=== PATIENT | female | born 1960 | race Caucasian/White ===

== ENCOUNTER 2018-09-22 15:04 | Observation (INO) | payer MEDICARE ==
[~2018-09-22] VITALS: Ht 157.5 cm; Wt 75.9 kg
[~2018-09-22 15:04] MED LIST: METF500T PO
--- NOTE | 2018-09-22 16:43 | ERD ---
ER Documentation Chief Complaint Chief Complaint PT reports epigastric pain radiates to her back since midnight HPI 57-year-old female presents the emergency department complaining of epigastric and chest pain. Patient states that beginning last night she began having a nonspecific chest discomfort which radiated to her epigastric area as well as to her left arm. Made her feel somewhat short of breath. It continued throughout the course of the day and then she came to the emergency department for evaluation. Patient reports the pain is non-provoked and associated with no palpitations, fevers, chills, hemoptysis or sputum production. Patient currently reports the pain is mild to moderate. She has never had similar type discomfort. ROS All systems reviewed and are negative except as per history of present illness. Allergies Allergies: Coded Allergies: No Known Allergy (Unverified , 09/22/18) PMhx/Soc Medical and Surgical Hx: pt denies Surgical Hx History of Surgery: No Hx Neurological Disorder: No Hx Respiratory Disorders: No Hx Cardiac Disorders: No Hx Miscellaneous Medical Probl: No Hx Alcohol Use: No Hx Substance Use: No Hx Tobacco Use: No Smoking Status: Never smoker FmHx Noncontributory for chief complaint Physical Exam Vitals Vital Signs Date Temp Pulse Resp B/P (MAP) Pulse Ox O2 O2 Flow FiO2 Time Delivery Rate 09/22/18 Nasal 2 15:43 Cannula 09/22/18 98.9 84 16 185/101 99 15:05 (129) Physical Exam GENERAL: The patient is well developed and appropriate for usual state of health in no apparent distress HEENT: Pupils equal, round, and reactive to light. EOMI. There is no scleral icterus. NECK: C-spine is soft and supple, there is no meningismus. There is no cervical lymphadenopathy. LUNGS: Clear to auscultation bilaterally. There are no rales, wheezes or rhonchi. HEART: Regular rate and rhythm, no murmurs, clicks, rubs or gallops. ABDOMEN: Soft, non-tender, non-distended. There are bowel sounds in all four quadrants. No rebound or guarding. EXTREMITIES: There is no peripheral cyanosis or edema. No focal swelling or erythema. NEURO: The patient moves all four extremities with 5/5 strength. Cranial nerves II - XII are intact. Normal gait. Alert and oriented SKIN: There is no apparent rash or petechiae. HEME/LYMPHATIC: There is no evidence of excessive bruising or lymphedema. PSYCHIATRIC: The patient does not appear anxious or depressed. Result Diagram: 09/22/18 1544 09/22/18 1544 Results 24 hrs Laboratory Tests Test 09/22/18 15:44 White Blood Count 8.3 10^3/ul Red Blood Count 4.90 10^6/ul Hemoglobin 14.5 g/dl Hematocrit 43.4 % Mean Corpuscular Volume 88.6 fl Mean Corpuscular Hemoglobin 29.6 pg Mean Corpuscular Hemoglobin Concent 33.4 g/dl Red Cell Distribution Width 12.5 % Platelet Count 141 10^3/UL Mean Platelet Volume 12.3 fl Immature Granulocytes % 0.400 % Neutrophils % 58.9 % Lymphocytes % 31.4 % Monocytes % 7.5 % Eosinophils % 1.3 % Basophils % 0.5 % Nucleated Red Blood Cells % 0.0 /100WBC Immature Granulocytes # 0.030 10^3/ul Neutrophils # 4.9 10^3/ul Lymphocytes # 2.6 10^3/ul Monocytes # 0.6 10^3/ul Eosinophils # 0.1 10^3/ul Basophils # 0.0 10^3/ul Nucleated Red Blood Cells # 0.0 10^3/ul Sodium Level 137 mmol/L Potassium Level 4.2 mmol/L Chloride Level 103 mmol/L Carbon Dioxide Level 25 mmol/L Anion Gap 9 Blood Urea Nitrogen 14 mg/dl Creatinine 0.72 mg/dl Est Glomerular Filtrat Rate mL/min > 60 mL/min Glucose Level 373 mg/dl Calcium Level 9.7 mg/dl Total Bilirubin 0.8 mg/dl Direct Bilirubin 0.00 mg/dl Indirect Bilirubin 0.8 mg/dl Aspartate Amino Transf (AST/SGOT) 37 IU/L Alanine Aminotransferase (ALT/SGPT) 50 IU/L Alkaline Phosphatase 113 IU/L Troponin I 0.024 ng/ml Total Protein 8.8 g/dl Albumin 4.1 g/dl Globulin 4.70 g/dl Albumin/Globulin Ratio 0.87 Lipase 59 U/L Procedures/MDM Patient was taken to a room, seen and evaluated. Comfort measures were initiated. Diagnostic tests were ordered and reviewed. 3 LEAD RHYTHM STRIP: Normal sinus rhythm without ectopy EK lead EKG reviewed by myself: Normal Sinus Rhythm Normal [place] and intervals No ST elevation, depression, or T wave inversion, nonspecific ST and T wave changes without ST elevation Impression: Normal EKG RADIOLOGY: Reviewed with the radiologist CONSULTATION: Hospitalist was notified for admission REEVALUATION: 1640: Diagnostic tests were appreciated. Patient was reevaluated and remained comfortable in appearance. She had no ongoing chest discomfort. Decision was made to admit to the hospital for further observation and consultation with her and her family MEDICAL DECISION MAKING: Patient presents with chest pain of uncertain etiology. Differential diagnosis considered includes acute myocardial infarction, pulmonary embolism, as well as vascular and pulmonary concerns. I have reviewed the patients clinical risk factors, EKG, lab studies and imaging. At this time, this diabetic, hypertensive female will be admitted to the hospital for further observation of possible cardiac disease as I am concerned regarding her significant risk factors. Departure Diagnosis: Primary Impression: Chest pain Additional Impression: Diabetes Condition: KAYLI Paz Sep 22, 2018 16:43
[2018-09-22] MEDS ORDERED: ACETAMINOPHEN 325 MG TAB PO PRN ×2 (17:00)
[2018-09-22] MEDS ORDERED: ONDANSETRON 4 MG INJ IV PRN (17:00)
[2018-09-22] MEDS ORDERED: IBUPROFEN 600 MG TAB PO PRN (17:00)
[2018-09-22] MEDS ORDERED: NACL 0.9% 3 ML SYG IV SCH (17:00)
--- NOTE | 2018-09-22 17:20 | HP ---
Date/Time of Note Date/Time of Note DATE: 09/22/18 TIME: 17:06 Assessment/Plan VTE Prophylaxis SCD applied (from Nsg): Yes Pharmacological prophylaxis: NA/contraindicated Pharm contraindication: low risk/ambulating Lines/Catheters IV Catheter Type (from Nrsg): Sal[place] Assessment/Plan Assessment/Plan 57 yo woman with asthma and diabetes presents with chest pain #Chest pain - Low concern for ACS. Trop negative, EKG looks good. - Check D dimer for PE. If positive will need CTPA. - Admit to telemetry. - Trend troponins. - Tylenol, ibuprofen prn pain. #Asthma - Albuterol prn #Diabetes - Sliding scale while inpatient. DVT: SCDs GI: None Result Diagram: 09/22/18 1544 09/22/18 1544 HPI/ROS Admit Date/Time Admit Date/Time 22 September 2018 Hx of Present Illness Ms. Huynh is a 57 yo woman with history of diabetes and mild intermittent asthma who presents with acute onset chest pain. She awoke at 4 am this morning short of breath and with mid substernal chest pain, slightly burning, not pressure-like. Symptoms lasted a few hours then self-resolved. She then developed similar aching, burning L chest pain and back pain around noon today. She presented to the emergency room. She still has this pain, and has R arm pain also. Otherwise she reports good exercise tolerance with no angina normally. She has no orthopnea or PND. In the emergency room she was afebrile, hypertensive to 185/101, P 80. Labs notable for BS 373. EKG was normal sinus with no ST-T changes concerning for ischemia. Troponin is negative. CXR is also unremarkable. ROS She denies recent fever, chills, anorexia, weight loss, night sweats, headache, vision changes, dizziness, sore throat, dysphagia, cough, chest pressure, naus ea, vomiting, abdominal pain, diarrhea, constipation, dysuria. PMH/Family/Social Past Medical History Mild intermittent asthma Diabetes type II, on metformin Medications Current Medications Ondansetron HCl (Zofran Inj) 4 mg ER BRIDGE PRN IV NAUSEA/VOMITING; Start 09/22/18 at 17:00; Stop 09/23/18 at 16:59 Acetaminophen (Tylenol Tab) 650 mg ER BRIDGE PRN PO .MILD PAIN 1-3 OR TEMP; Start 09/22/18 at 17:00; Stop 09/23/18 at 16:59 Coded Allergies: No Known Allergy (Unverified , 09/22/18) Past Surgical History Denies Social History Lives with daughter. Alcohol Use: none Smoking Status: Never smoker Drug Use: none Exam/Review of Systems Vital Signs Vitals Vital Signs Date Temp Pulse Resp B/P (MAP) Pulse Ox O2 O2 Flow FiO2 Time Delivery Rate 09/22/18 Nasal 2 15:43 Cannula 09/22/18 98.9 84 16 185/101 99 15:05 (129) Exam Exam Gen: Well appearing woman lying in gurney in no acute distress. Eyes: PERRL, no icterus HEENT: Moist mucous membranes, clear oropharynx Neck: Supple, no lymphadenopathy, no jugular venous distension Card: Regular rate and rhythm, no murmurs. Pulm: Clear to auscultation bilaterally. Abd: Soft, nontender to palpation, nondistended. Normoactive bowel sounds. Ext: No cyanosis/clubbing/edema. Skin: No jaundice. Warm, dry, well perfused. SAM WALDEN MD Sep 22, 2018 17:16
[2018-09-22] MEDS: ONDANSETRON 4 MG INJ IV PRN ×2 (17:28→23:50)
[2018-09-22] MEDS ORDERED: GLUCOSE GEL 15 GRAM TUBE PO PRN ×2 (17:30)
[2018-09-22] MEDS ORDERED: GLUCOSE GEL 15 GRAM TUBE BUCCAL PRN (17:30)
[2018-09-22] MEDS ORDERED: GLUCAGON 1 MG INJ IM PRN (17:30)
[2018-09-22] MEDS ORDERED: DEXTROSE 50% 50 ML SYRINGE IV PRN ×2 (17:30)
[2018-09-22] MEDS ORDERED: ASPIRIN 325 MG TAB PO ONE (18:00)
[2018-09-22] MEDS: INSULIN ASPART [NOVOLOG] 3 ML PEN SC SCH ×2 (18:36→21:01)
[2018-09-22] MEDS ORDERED: KETOROLAC 15 MG INJ IV STA (19:22)
[2018-09-22 21:50] VITALS: Ht 157.5 cm; Wt 75.9 kg
[2018-09-22] MEDS ORDERED: AL HYDROX/MG HYDROX/SIMETH 30 ML CUP PO ONE (23:00)
[2018-09-22] MEDS ORDERED: NITROGLYCERIN (SL) 0.4 MG TAB SL ONE (23:30)
[2018-09-22 23:53] VITALS: BP 158/87; PULSE 65; RESP 18
[2018-09-23] MEDS ORDERED: ACCU-CHEK XX SCH (02:00)
[2018-09-23] MEDS ORDERED: HEPARIN 1000 UNITS/ML 10 ML INJ IV PRN ×2 (03:00→09:00)
[2018-09-23] MEDS ORDERED: HEPARIN 25000 UNITS/250 ML 250 ML IV SCH (03:00)
[2018-09-23] MEDS ORDERED: HEPARIN 1000 UNITS/ML 10 ML INJ IV ONE (03:00)
--- NOTE | 2018-09-23 03:02 | QN ---
Documentation Comment nstemi: positive troponin and ckmb. complaining of epigastric pain which was relieved with nitro. Starting heparin drip. cardiac enzymes trending. RACHELE BOLAÑOS Sep 23, 2018 03:02
[2018-09-23] MEDS ORDERED: ATORVASTATIN 80 MG TAB PO ONE (03:30)
[2018-09-23] MEDS ORDERED: NITROGLYCERIN (SL) 0.4 MG TAB SL PRN (03:30)
[2018-09-23] MEDS ORDERED: NITROGLYCERIN (SL) 0.4 MG TAB SL ONE (03:30)
[2018-09-23] MEDS ORDERED: LISINOPRIL 10 MG TAB PO ONE (03:30)
[2018-09-23] MEDS ORDERED: morphine 2 MG INJ IV PRN ×2 (04:00→05:30)
[2018-09-23 04:16] VITALS: BP 137/81; PULSE 74; RESP 18
[2018-09-23] MEDS ORDERED: LORAZEPAM 0.5 MG TAB PO PRN (07:00)
[2018-09-23 07:38] VITALS: BP 130/88; PULSE 72; RESP 18
[2018-09-23] MEDS ORDERED: INSULIN ASPART [NOVOLOG] 3 ML PEN SC SCH (09:00)
[2018-09-23] MEDS: INSULIN ASPART [NOVOLOG] 3 ML PEN SC SCH ×2 (09:45→13:50)
[2018-09-23] MEDS ORDERED: ASPIRIN 81 MG TAB PO SCH (10:30)
[2018-09-23] MEDS ORDERED: METOPROLOL 50 MG TAB PO SCH (10:30)
[2018-09-23 10:46] VITALS: BP 116/67; RESP 18
--- NOTE | 2018-09-23 10:52 | RADRPT ---
Echocardiogram Report Patient Name: NEIL GERMANPatient ID: [id number] : 1960 (57y 11m)Study Date: 09/23/2018 8:18:50 AM Gender: FAccession #: [id number] Tech: LE Location: [facility] Ref.Physician: RACHELE BOLAÑOS Height(Cm): BSA: Weight(Kg): Quality: GoodOrder Physician: RACHELE BOLAÑOS Account #: Procedures: Echocardiographic Report: Transthoracic echocardiogram with complete 2D, M-Mode, and doppler examination. Indications: NSTEMI. Measurements: 2D/M Mode Doppler Measurement Value Normal Range Measurement Value Normal Range LVIDd 2D 4.8 [ 3.8 - 5.2 ] cm AV Mean Mychal 0.9 [ 70.0 - 90.0 ] cm/sec LVIDs 2D 4.0 [ 2.2 - 3.5 ] cm AV Mean PG 3.0 [ 2.0 - 4.0 ] mmHg LVPWd 2D 1.0 [ 0.6 - 0.9 ] cm AV Peak Mychal 1.2 [ 100.0 - 170.0 ] cm/sec IVSd 2D 1.0 [ 0.6 - 0.9 ] cm AV Peak PG 6.0 [ 2.0 - 9.0 ] mmHg EF 2D 35.2 [ 54.0 - 74.0 ] percent AV VTI 27.1 cm LVOT Diam 2.0 [ 2.1 - 2.5 ] cm LVOT Peak Mychal 0.7 [ 70.0 - 110.0 ] cm/sec LVOT Peak PG 2.0 [ 2.0 - 6.0 ] mmHg MV E Peak Mychal 0.8 [ 60.0 - 130.0 ] cm/sec MV A Peak Mychal 1.2 [ 100.0 - 120.0 ] cm/sec MV E/A 0.7 [ 0.8 - 1.5 ] ratio MV Decel Time 180 [ 104 - 258 ] msec Lat E` Mychal 0.0 [ 10.0 - 15.0 ] cm/sec Lateral E/E` 19.3 [ 1.0 - 2.0 ] ratio Med E` Mychal 0.0 cm/sec MV E/A 0.7 [ 0.8 - 1.5 ] ratio TR Peak Mychal 2.8 [ 100.0 - 280.0 ] cm/sec TR Peak PG 32.0 mmHg PV Peak Mychal 0.7 [ 40.0 - 80.0 ] cm/sec PV Peak PG 2.0 mmHg Findings: Left Ventricle: Normal left ventricular cavity size. Normal left ventricular wall thickness. Moderate left ventricular systolic dysfunction. Ejection fraction is visually estimated at 35 %. Severe hypokinesis/akinesis of the mid to distal septum and anterior wall. Akinesis/dyskinesis of the apex. No obviouc sthrombus is seen but definity contrast echo would be useful for evaluation. Right Ventricle: Normal right ventricular size. Normal right ventricular systolic function. Left Atrium: There is mild enlargement of left atrium. Right Atrium: The right atrium is normal in size. Mitral Valve: Normal appearance of the mitral valve. Mild mitral valve regurgitation. Aortic Valve: Normal appearance of the aortic valve. No significant aortic stenosis or insufficiency. Tricuspid Valve: Normal appearance of the tricuspid valve. Unable to obtain RVSP due to minimal presence of tricuspid regurgitation. There is trace tricuspid regurgitation. Pericardium: Normal pericardium with no significant pericardial effusion. Aorta: Normal aortic root. IVC: Normal size and normal respiratory collapse consistent with normal right atrial pressure. Conclusions: Normal left ventricular cavity size. Normal left ventricular wall thickness. Moderate left ventricular systolic dysfunction. Ejection fraction is visually estimated at 35 %. Severe hypokinesis/akinesis of the mid to distal septum and anterior wall. Akinesis/dyskinesis of the apex. No obvious sthrombus is seen but definity contrast echo would be useful for evaluation. No significant valvular stenosis or regurgitation seen. Unable to obtain RVSP due to minimal presence of tricuspid regurgitation. Normal size and normal respiratory collapse consistent with normal right atrial pressure. Electronically Signed By: Mando Louis 2018-09-23 10:51:14 PDT
[2018-09-23] MEDS ORDERED: ISOSORBIDE MONONITRATE(SR)60 MG TAB PO SCH (11:00)
--- NOTE | 2018-09-23 11:07 | CONS ---
Assessment/Plan Assessment/Plan Hospital Course (Demo Recall) NSTEMI: Trop so far 4.1. No STEMI by EKG but evolution of EKGs show loss of R waves in V1, V2, aVL. She also has one EKG showing mild inferior ST depressions. Echo shows severe hypokinesis/akinesis in the LAD territory. It is reassuring she does not have symptoms but I suspect either a subtotal LAD or possibly she had a chronic LAD occlusion and now she has an RCA lesion which is causing is chemia to the collaterals. She needs an expedited cardiac cath and our greenskeeper laborer is unfortunately not available so this is being arranged at [facility]. Ischemic cardiomyopathy: EF 35% on echo with LAD territory abnormalities. No CHF on exam DM -transfer for cath -trend troponins -repeat EKG for any recurrence of chest pain -continue heparin drip -continue ASA -hold off plavix unless recurrent chest pain with new EKG changes as she may need CABG -lipitor 80mg -start coreg 6.25mg BID -start imdur 60mg while she is waiting for transfer Consultation Date/Type/Reason Admit Date/Time 22 September 2018 Date of Consultation: Sep 23, 2018 Type of Consult Cardiology Reason for Consultation NSTEMI Requesting Provider: SAM WALDEN MD Date/Time of Note DATE: 09/23/18 TIME: 10:52 Hx of Present Illness 57 yo F with a h/o uncontrolled DM (A1C 10.5), who presented with chest pain. Her initial troponin was negative but subsequently trended up to 4.1. Transfer is being arranged to [facility] for urgent cardiac cath. The pt's daughter assisted with interpretation. The pt had chest pain which woke her from her sleep the night prior to admission. She describes it as a pressure like pain. She had not experienced this before. Her symptoms resolved when she arrived in the ED and she had a mild episode overnight around 3 am which was resolved with SL NTG and morphine. No pain for 8 hours. per hPI Past Medical History per HPI Home Meds Reported Medications Metformin Hcl (Glucophage) 500 Mg Tablet, 500 MG PO BID WITH MEALS, #90 TAB 09/22/18 Medications Current Medications IV Flush (NS 3 ml) 3 ml PER PROTOCOL IV ; Start 09/22/18 at 17:00 Ondansetron HCl (Zofran Inj) 4 mg Q6H PRN IV NAUSEA/VOMITING Last administered on 09/22/18at 23:50; Admin Dose 4 MG; Start 09/22/18 at 17:00 Acetaminophen (Tylenol Tab) 650 mg Q6H PRN PO .PAIN 1-3 OR TEMP Last administered on 09/22/18at 17:28; Admin Dose 650 MG; Start 09/22/18 at 17:00 Ibuprofen (Motrin) 600 mg Q6H PRN PO .PAIN 1-3 Last administered on 09/22/18at 17:53; Admin Dose 600 MG; Start 09/22/18 at 17:00 Miscellaneous Information 1 ea NOTE XX ; Start 09/22/18 at 17:30 Glucose (Glutose) 15 gm Q15M PRN PO DECREASED GLUCOSE; Start 09/22/18 at 17:30 Glucose (Glutose) 22.5 gm Q15M PRN PO DECREASED GLUCOSE; Start 09/22/18 at 17:30 Dextrose (D50w Syringe) 25 ml Q15M PRN IV DECREASED GLUCOSE; Start 09/22/18 at 17:30 Dextrose (D50w Syringe) 50 ml Q15M PRN IV DECREASED GLUCOSE; Start 09/22/18 at 17:30 Glucagon (Glucagen) 1 mg Q15M PRN IM DECREASED GLUCOSE; Start 09/22/18 at 17:30 Glucose (Glutose) 15 gm Q15M PRN BUCCAL DECREASED GLUCOSE; Start 09/22/18 at 17:30 Heparin Sodium (Porcine) 250 ml @ 9 mls/hr PER PROTOCOL IV Last administered on 09/23/18at 03:33; Admin Dose 9 MLS/HR; Start 09/23/18 at 03:00 Heparin Sodium (Porcine) (Heparin (1000 Units/ml)) 4,000 unit PER PROTOCOL PRN IV aPTT<47; Start 09/23/18 at 09:00 Nitroglycerin (Nitroglycerin (Sl Tab) 0.4 Mg) 1 tab Q5M PRN SL ANGINA; Start 09/23/18 at 03:30 Atorvastatin Calcium (Lipitor) 80 mg HS PO ; Start 09/23/18 at 21:00 Morphine Sulfate (morphine) 2 mg Q2 PRN IV SEVERE PAIN LEVEL 7-10; Start 09/23/18 at 05:30 Lisinopril (Zestril) 10 mg DAILY PO ; Start 09/24/18 at 09:00 Lorazepam (Ativan) 0.5 mg BID PRN PO anxiety; Start 09/23/18 at 07:00 Diagnostic Test (Pha) (Accu-Chek) 1 ea 02 XX ; Start 09/24/18 at 02:00 Insulin Aspart (Novolog Insulin Pen) NOVOLOG *MILD* ALGORI... Q4 SC Last administered on 09/23/18at 09:45; Admin Dose 3 UNIT; Start 09/23/18 at 09:00 Aspirin (Aspirin) 81 mg DAILY PO ; Start 09/23/18 at 10:30 Carvedilol (Coreg) 6.25 mg BID PO ; Start 09/23/18 at 10:30 Allergies: Coded Allergies: No Known Allergy (Unverified , 09/22/18) Social History Alcohol Use: none Smoking Status: Never smoker Drug Use: none Exam/Review of Systems Vital Signs Vitals Vital Signs Date Temp Pulse Resp B/P (MAP) Pulse Ox O2 O2 Flow FiO2 Time Delivery Rate 09/23/18 98.2 18 116/67 99 Nasal 2.0 10:46 (83) Cannula 09/23/18 72 07:38 Intake and Output 09/22/18 09/22/18 09/23/18 1515:00 23:00 07:00 IntakeIntake Total 250 ml BalanceBalance 250 ml Exam Constitutional: alert, oriented Psych: no complaints, nl mood/affect Head: normocephalic, atraumatic Neck: No jvd Respiratory: clear to auscultation; No crackles/rales Cardiovascular: regular rate and rhythm; No edema, No systolic murmur Gastrointestinal: soft, non-tender; No distended Musculoskeletal: nl extremities to inspection Neurological: nl mental status, nl speech Labs Result Diagram: 09/23/18 0321 09/23/18 0320 Results 24hrs Laboratory Tests Test 09/22/18 15:44 09/22/18 18:08 09/22/18 20:57 09/22/18 22:09 White Blood Count 8.3 Red Blood Count 4.90 Hemoglobin 14.5 Hematocrit 43.4 Mean Corpuscular 88.6 Volume Mean Corpuscular 29.6 Hemoglobin Mean Corpuscular 33.4 Hemoglobin Concent Red Cell 12.5 Distribution Width Platelet Count 141 Mean Platelet Volume 12.3 H Immature 0.400 Granulocytes % Neutrophils % 58.9 Lymphocytes % 31.4 Monocytes % 7.5 Eosinophils % 1.3 Basophils % 0.5 Nucleated Red Blood 0.0 Cells % Immature 0.030 Granulocytes # Neutrophils # 4.9 Lymphocytes # 2.6 Monocytes # 0.6 Eosinophils # 0.1 Basophils # 0.0 Nucleated Red Blood 0.0 Cells # D-Dimer 421.89 D-Dimer Comment Sodium Level 137 Potassium Level 4.2 Chloride Level 103 Carbon Dioxide Level 25 Anion Gap 9 Blood Urea Nitrogen 14 Creatinine 0.72 Est Glomerular > 60 Filtrat Rate mL/min Glucose Level 373 H Calcium Level 9.7 Total Bilirubin 0.8 Direct Bilirubin 0.00 Indirect Bilirubin 0.8 Aspartate Amino 37 Transf (AST/SGOT) Alanine 50 Aminotransferase (AL T/SGPT) Alkaline Phosphatase 113 Troponin I 0.024 0.702 *H Total Protein 8.8 H Albumin 4.1 Globulin 4.70 H Albumin/Globulin 0.87 Ratio Lipase 59 Bedside Glucose 288 H 249 H Creatine Kinase 179 Creatine Kinase 6.3 Index Creatinine Kinase MB 11.30 H (Mass) Test 09/23/18 02:30 09/23/18 03:20 09/23/18 03:21 09/23/18 09:43 Bedside Glucose 212 258 H Prothrombin Time 13.5 Prothrombin Time 1.1 Ratio INR International 1.02 Normalized Ratio Activated 35.1 H Partial Thromboplast Time Sodium Level 139 Potassium Level 5.1 Chloride Level 104 Carbon Dioxide Level 25 Anion Gap 10 Blood Urea Nitrogen 17 Creatinine 0.76 Est Glomerular > 60 Filtrat Rate mL/min Glucose Level 267 #H Calcium Level 9.9 Phosphorus Level 4.1 Magnesium Level 1.9 Total Bilirubin 1.0 Direct Bilirubin 0.00 Indirect Bilirubin 1.0 Aspartate Amino 106 H Transf (AST/SGOT) Alanine 53 Aminotransferase (AL T/SGPT) Alkaline Phosphatase 121 Creatine Kinase 803 #H Creatine Kinase 7.9 Index Creatinine Kinase MB 63.40 H (Mass) Troponin I 4.130 *H Total Protein 9.0 H Albumin 4.2 Globulin 4.80 H Albumin/Globulin 0.87 Ratio Thyroid Stimulating 2.210 Hormone (TSH) White Blood Count 13.8 #H Red Blood Count 4.96 Hemoglobin 15.0 Hematocrit 43.3 Mean Corpuscular 87.3 Volume Mean Corpuscular 30.2 Hemoglobin Mean Corpuscular 34.6 Hemoglobin Concent Red Cell 12.5 Distribution Width Platelet Count 138 L Mean Platelet Volume 12.8 H Immature 0.900 H Granulocytes % Neutrophils % 78.3 H Lymphocytes % 15.6 Monocytes % 4.7 Eosinophils % 0.1 Basophils % 0.4 Nucleated Red Blood 0.0 Cells % Immature 0.130 H Granulocytes # Neutrophils # 10.8 H Lymphocytes # 2.2 Monocytes # 0.6 Eosinophils # 0.0 Basophils # 0.1 Nucleated Red Blood 0.0 Cells # Hemoglobin A1c 10.5 H Medications Medications Current Medications IV Flush (NS 3 ml) 3 ml PER PROTOCOL IV ; Start 09/22/18 at 17:00 Ondansetron HCl (Zofran Inj) 4 mg Q6H PRN IV NAUSEA/VOMITING Last administered on 09/22/18at 23:50; Admin Dose 4 MG; Start 09/22/18 at 17:00 Acetaminophen (Tylenol Tab) 650 mg Q6H PRN PO .PAIN 1-3 OR TEMP Last administered on 09/22/18at 17:28; Admin Dose 650 MG; Start 09/22/18 at 17:00 Ibuprofen (Motrin) 600 mg Q6H PRN PO .PAIN 1-3 Last administered on 09/22/18at 17:53; Admin Dose 600 MG; Start 09/22/18 at 17:00 Miscellaneous Information 1 ea NOTE XX ; Start 09/22/18 at 17:30 Glucose (Glutose) 15 gm Q15M PRN PO DECREASED GLUCOSE; Start 09/22/18 at 17:30 Glucose (Glutose) 22.5 gm Q15M PRN PO DECREASED GLUCOSE; Start 09/22/18 at 17:30 Dextrose (D50w Syringe) 25 ml Q15M PRN IV DECREASED GLUCOSE; Start 09/22/18 at 17:30 Dextrose (D50w Syringe) 50 ml Q15M PRN IV DECREASED GLUCOSE; Start 09/22/18 at 17:30 Glucagon (Glucagen) 1 mg Q15M PRN IM DECREASED GLUCOSE; Start 09/22/18 at 17:30 Glucose (Glutose) 15 gm Q15M PRN BUCCAL DECREASED GLUCOSE; Start 09/22/18 at 17:30 Heparin Sodium (Porcine) 250 ml @ 9 mls/hr PER PROTOCOL IV Last administered on 09/23/18at 03:33; Admin Dose 9 MLS/HR; Start 09/23/18 at 03:00 Heparin Sodium (Porcine) (Heparin (1000 Units/ml)) 4,000 unit PER PROTOCOL PRN IV aPTT<47; Start 09/23/18 at 09:00 Nitroglycerin (Nitroglycerin (Sl Tab) 0.4 Mg) 1 tab Q5M PRN SL ANGINA; Start 09/23/18 at 03:30 Atorvastatin Calcium (Lipitor) 80 mg HS PO ; Start 09/23/18 at 21:00 Morphine Sulfate (morphine) 2 mg Q2 PRN IV SEVERE PAIN LEVEL 7-10; Start 09/23/18 at 05:30 Lisinopril (Zestril) 10 mg DAILY PO ; Start 09/24/18 at 09:00 Lorazepam (Ativan) 0.5 mg BID PRN PO anxiety; Start 09/23/18 at 07:00 Diagnostic Test (Pha) (Accu-Chek) 1 ea 02 XX ; Start 09/24/18 at 02:00 Insulin Aspart (Novolog Insulin Pen) NOVOLOG *MILD* ALGORI... Q4 SC Last administered on 09/23/18at 09:45; Admin Dose 3 UNIT; Start 09/23/18 at 09:00 Aspirin (Aspirin) 81 mg DAILY PO ; Start 09/23/18 at 10:30 Carvedilol (Coreg) 6.25 mg BID PO ; Start 09/23/18 at 10:30 MIKE OBRIEN Sep 23, 2018 11:07
[2018-09-23 11:40] VITALS: BP 108/70; PULSE 77
--- NOTE | 2018-09-23 14:26 | DS ---
Date/Time of Note Date/Time of Note DATE: 09/23/18 TIME: 14:20 Discharge Summary Admission/Discharge Info Admit Date/Time Sep 22, 2018 at 16:44 Discharge Date/Time Sep 23, 2018 Discharge Diagnosis Acute coronary syndrome Patient Condition: Serious Hx of Present Illness Ms. Huynh is a 57 yo woman with history of diabetes and mild intermittent a sthma who presents with acute onset chest pain. She awoke at 4 am this morning short of breath and with mid substernal chest pa in, slightly burning, not pressure-like. Symptoms lasted a few hours then self- resolved. She then developed similar aching, burning L chest pain and back pain around noon today. She presented to the emergency room. She still has this pain, and has R arm pain also. Otherwise she reports good exercise tolerance with no angina normally. She has no orthopnea or PND. In the emergency room she was afebrile, hypertensive to 185/101, P 80. Labs notable for BS 373. EKG was normal sinus with no ST-T changes concerning for ischemia. Troponin is negative. CXR is also unremarkable. Hospital Course The patient was admitted to telemetry with low suspicion for ACS. She began having further chest pain, received acetaminophen, ibuprofen, and finally k etoralac. Repeat troponin came back which was 0.70. EKG was done which showed a new ST elevation in V2 with ST depressions in II and III. Dr. Louis was consulted. The patient was started on NSTEMI treatment with heparin gtt, atorvastatin, got aspirin 325mg PO x1. Chest pain was treated with IV morphine. The third troponin came back at 4.1. The cardiac catheterization lab at our hospital is nonfunctional. A plan was made to transfer to [facility], the nearest [facility] with a working cardiac catheterization technician. I called Dr. Swain who agreed to take the patient for cath. Dr. Adams agreed to admit the patient to the hospitalist service. Home Meds Reported Medications Metformin Hcl (Glucophage) 500 Mg Tablet, 500 MG PO BID WITH MEALS, #90 TAB 09/22/18 Primary Care Provider Not On Staff Doctor Time spent on discharge: > 30 minutes Pending Labs Laboratory Tests Test 09/22/18 15:44 09/22/18 18:08 09/22/18 20:57 09/22/18 22:09 White Blood 8.3 Count 10^3/ul (4.8-10 .8) Red Blood 4.90 Count 10^6/ul (4.20-5 .40) Hemoglobin 14.5 g/dl (12.0-16.0 ) Hematocrit 43.4 % (37.0-47.0) Mean 88.6 Corpuscular fl (82.0-101.0) Volume Mean 29.6 Corpuscular pg (29.0-33.0) Hemoglobin Mean 33.4 Corpuscular g/dl (32.0-37.0 Hemoglobin Conc ) ent Red Cell 12.5 Distribution % (11.5-14.5) Width Platelet Count 141 10^3/UL (140-41 5) Mean Platelet 12.3 Volume fl (7.4-10.4) Immature 0.400 Granulocytes % % (0.001-0.429) Neutrophils % 58.9 % (39.0-77.0) Lymphocytes % 31.4 % (15.0-51.0) Monocytes % 7.5 % (0.0-11.0) Eosinophils % 1.3 % (0.0-7.0) Basophils % 0.5 % (0.0-2.0) Nucleated Red 0.0 Blood Cells % /100WBC (0.0-0. 0) Immature 0.030 Granulocytes # 10^3/ul (0.0-0. 031) Neutrophils # 4.9 10^3/ul (1.6-7. 5) Lymphocytes # 2.6 10^3/ul (0.8-2. 9) Monocytes # 0.6 10^3/ul (0.3-0. 9) Eosinophils # 0.1 10^3/ul (0.0-0. 5) Basophils # 0.0 10^3/ul (0.0-0. 1) Nucleated Red 0.0 Blood Cells # 10^3/ul (0.0-0. 0) D-Dimer 421.89 ng/ml (<460) D-Dimer Comment Sodium Level 137 mmol/L (135-144 ) Potassium 4.2 Level mmol/L (3.5-5.1 ) Chloride Level 103 mmol/L (97-110) Carbon Dioxide 25 Level mmol/L (21-31) Anion Gap 9 (5-13) Blood Urea 14 mg/dl (7-20) Nitrogen Creatinine 0.72 mg/dl (0.44-1.0 0) Est Glomerular > 60 Filtrat mL/min (>60) Rate mL/min Glucose Level 373 mg/dl (70-220) Calcium Level 9.7 mg/dl (8.4-10.2 ) Total 0.8 Bilirubin mg/dl (0.2-1.3) Direct 0.00 Bilirubin mg/dl (0.00-0.2 0) Indirect 0.8 Bilirubin mg/dl (0-1.1) Aspartate Amino 37 IU/L (15-46) Transf (AST/SGO T) Alanine 50 IU/L (13-69) Aminotransferas e (ALT/SGPT) Alkaline 113 Phosphatase IU/L (42-121) Troponin I 0.024 0.702 ng/ml (0.000-0. ng/ml (0.000-0 120) .120) Total Protein 8.8 g/dl (6.1-8.1) Albumin 4.1 g/dl (3.3-4.9) Globulin 4.70 g/dl (1.3-3.2) Albumin/Globuli 0.87 n Ratio Lipase 59 U/L (23-300) Bedside 288 249 Glucose mg/dL (70-220) mg/dL (70-220) Creatine 179 Kinase IU/L (23-200) Creatine Kinase 6.3 Index Creatinine 11.30 Kinase MB ng/ml (0.0-2.4 (Mass) ) Test 09/23/18 02:30 09/23/18 03:20 09/23/18 03:21 09/23/18 09:43 Bedside 212 258 Glucose mg/dL (70-220) mg/dL (70-220) Prothrombin 13.5 Time Sec (11.9-14.9 ) Prothrombin 1.1 Time Ratio INR 1.02 International Normalized Rati o Activated 35.1 Partial Thrombo Sec (23.0-35.0 plast Time ) Sodium Level 139 mmol/L (135-14 4) Potassium 5.1 Level mmol/L (3.5-5. 1) Chloride Level 104 mmol/L (97-110 ) Carbon Dioxide 25 Level mmol/L (21-31) Anion Gap 10 (5-13) Blood Urea 17 Nitrogen mg/dl (7-20) Creatinine 0.76 mg/dl (0.44-1. 00) Est Glomerular > 60 Filtrat mL/min (>60) Rate mL/min Glucose Level 267 mg/dl (70-220) Calcium Level 9.9 mg/dl (8.4-10. 2) Phosphorus 4.1 Level mg/dl (2.5-4.9 ) Magnesium 1.9 Level mg/dl (1.7-2.5 ) Total 1.0 Bilirubin mg/dl (0.2-1.3 ) Direct 0.00 Bilirubin mg/dl (0.00-0. 20) Indirect 1.0 Bilirubin mg/dl (0-1.1) Aspartate Amino 106 Transf (AST/SGO IU/L (15-46) T) Alanine 53 Aminotransferas IU/L (13-69) e (ALT/SGPT) Alkaline 121 Phosphatase IU/L (42-121) Creatine 803 Kinase IU/L (23-200) Creatine Kinase 7.9 Index Creatinine 63.40 Kinase MB ng/ml (0.0-2.4 (Mass) ) Troponin I 4.130 ng/ml (0.000-0 .120) Total Protein 9.0 g/dl (6.1-8.1) Albumin 4.2 g/dl (3.3-4.9) Globulin 4.80 g/dl (1.3-3.2) Albumin/Globuli 0.87 n Ratio Thyroid 2.210 Stimulating MIU/L (0.465-4 Hormone (TSH) .680) White Blood 13.8 Count 10^3/ul (4.8-1 0.8) Red Blood 4.96 Count 10^6/ul (4.20- 5.40) Hemoglobin 15.0 g/dl (12.0-16. 0) Hematocrit 43.3 % (37.0-47.0) Mean 87.3 Corpuscular fl (82.0-101.0 Volume ) Mean 30.2 Corpuscular pg (29.0-33.0) Hemoglobin Mean 34.6 Corpuscular g/dl (32.0-37. Hemoglobin Conc 0) ent Red Cell 12.5 Distribution % (11.5-14.5) Width Platelet Count 138 10^3/UL (140-4 15) Mean Platelet 12.8 Volume fl (7.4-10.4) Immature 0.900 Granulocytes % % (0.001-0.429 ) Neutrophils % 78.3 % (39.0-77.0) Lymphocytes % 15.6 % (15.0-51.0) Monocytes % 4.7 % (0.0-11.0) Eosinophils % 0.1 % (0.0-7.0) Basophils % 0.4 % (0.0-2.0) Nucleated Red 0.0 Blood Cells % /100WBC (0.0-0 .0) Immature 0.130 Granulocytes # 10^3/ul (0.0-0 .031) Neutrophils # 10.8 10^3/ul (1.6-7 .5) Lymphocytes # 2.2 10^3/ul (0.8-2 .9) Monocytes # 0.6 10^3/ul (0.3-0 .9) Eosinophils # 0.0 10^3/ul (0.0-0 .5) Basophils # 0.1 10^3/ul (0.0-0 .1) Nucleated Red 0.0 Blood Cells # 10^3/ul (0.0-0 .0) Hemoglobin A1c 10.5 % (0-5.9) Test 09/23/18 10:07 09/23/18 13:47 Activated 177.8 Partial Thrombo Sec (23.0-35.0) plast Time Creatine 1129 Kinase IU/L (23-200) Creatine Kinase 8.5 Index Creatinine 96.20 Kinase MB ng/ml (0.0-2.4) (Mass) Troponin I 3.950 ng/ml (0.000-0. 120) Bedside 262 Glucose mg/dL (70-220) SAM WALDEN MD Sep 23, 2018 14:26
[2018-09-23] MEDS ORDERED: ATORVASTATIN 80 MG TAB PO SCH (21:00)
[2018-09-24] MEDS ORDERED: ACCU-CHEK XX SCH (02:00)
[2018-09-24] MEDS ORDERED: LISINOPRIL 10 MG TAB PO SCH (09:00)
== END 2018-09-23 15:10 | disposition short-term general hospital (02) ==
LOC: E/R 15:04 → TEL 16:44
PROVIDERS: ADMIT Internal Medicine; ATTEND Internal Medicine
DX: I24.9 Acute ischemic heart disease, unspecified (principal); J45.20 Mild intermittent asthma, uncomplicated; E11.65 Type 2 diabetes mellitus with hyperglycemia; Z79.4 Long term (current) use of insulin
CPT/HCPCS: 36415; 71045; 80053; 82550; 82553; 82962; 83036; 83690; 83735; 84100; 84443; 84484; 85025; 85378; 85610; 85730; 93005; 93306; 99285; G0378; J1644; J1815; J1885; J2270; J2405